=== PATIENT | female | born 1950 | race Caucasian/White ===

== ENCOUNTER 2017-04-09 16:01 | Emergency (ER) | payer OTHER, MEDICARE ==
[2017-04-09 19:28] VITALS: BP 138/76
== END 2017-04-09 17:15 | disposition home or self-care (01) ==
LOC: FSED 16:01
DX: S52.614A Nondisplaced fracture of right ulna styloid process, initial encounter for closed fracture (principal); S52.501A Unspecified fracture of the lower end of right radius, initial encounter for closed fracture; W01.0XXA Fall on same level from slipping, tripping and stumbling without subsequent striking against object, initial encounter; Y92.019 Unspecified place in single-family (private) house as the place of occurrence of the external cause
CPT/HCPCS: 99284

== ENCOUNTER → 2018-08-29 | Day surgery (SDC) | payer MEDICARE ==
[2018-08-27 12:35] LABS: BASOPHILS # (AUTO) 0.1 (0.0-0.1); BASOPHILS % 0.8 % (0.0-1.0); EOSINOPHILS # (AUTO) 0.2 (0.0-0.4); EOSINOPHILS % 2.6 % (0.0-6.0); HEMATOCRIT 36.3 % (34.2-44.1); HEMOGLOBIN 11.4 g/dL (12.0-16.0); LYMPHOCYTES # (AUTO) 1.3 (1.0-3.2); LYMPHOCYTES % 19.7 % (18.0-39.1); MEAN CORPUSCULAR HEMOGLOBIN 26.8 pg (28-32); MEAN CORPUSCULAR HGB CONC 31.4 g/dL (31-35); MEAN CORPUSCULAR VOLUME 85.4 fL (81-99); MONOCYTES # (AUTO) 0.6 (0.2-0.8); MONOCYTES % 9.3 % (4.4-11.3); NEUTROPHILS # (AUTO) 4.3 (2.1-6.9); NEUTROPHILS % 67.3 % (38.7-80.0); PLATELET COUNT 306 x10e3/uL (140-360); RED BLOOD COUNT 4.25 x10e6/uL (3.6-5.1); RED CELL DISTRIBUTION WIDTH 15.8 % (11.7-14.4)
[~2018-08-29] MED LIST: ATORVASTATIN CA20 MG PO; CALCIUM PO; DEXTROSE 5% 250ML 250 ML IV ONE; FENTANYL CITRATE/PF 100MCG/2 ML INJ ONE; GABAPENTIN400 MG PO; GLIMEPIRIDE2 MG PO; GLUCOSAMINE H1500 MG PO; JANUVIA100 MG PO; LOSARTAN POTAS100 MG PO; MELATONIN3 M1 PO; METFORMIN HCL500 MG PO; MIDAZOLAM HCL 2 MG/2 ML VIAL ONE; OXYBUTYNIN CHLOR5 MG PO; PROPOFOL IV EMULSION 10 MG/ML 50 ML VIAL ONE; SPIRONOLACTONE25 MG PO; VIT B12 PO
--- OUTSIDE RECORDS SUMMARY | 2018-08-29 05:51 | XMS REPORT | Summary of Care ---
Author Jhoan Rodriguez [facility] Unknown Address Unknown Phone Unavailable Care Team Providers Care Operator Helper Name Role Phone IAN Fox, ANDREAS Unavailable Unavailable KAZ Fox, WALLY Unavailable Unavailable KAZ VIVAR VA, WALLY BAKER Unavailable Unavailable Unavailable Unavailable Functional Status Name Dates Details Functional status health issues are not documented Status: Name Dates Details Cognitive status health issues are not documented Status: Problems Name Dates Details Fatigue (780.79, R53.83) Status: Active Esophageal reflux (530.81, K21.9) Status: Active Stasis edema of both lower extremities (459.30, I87.303) Status: Active Depression, controlled (311, F32.9) Status: Active Iron deficiency anemia (280.9, D50.9) Status: Active Sinusitis (473.9, J32.9) Status: Active Advanced care planning/counseling discussion (V65.49, Z71.89) Status: Active Chronic pain (338.29, G89.29) Status: Active Alopecia (704.00, L65.9) Status: Active Vitamin B12 deficiency (266.2, E53.8) Status: Active Primary localized osteoarthritis of right knee (715.16, M17.11) Status: Active Status post gastric bypass for obesity (V45.86, Z98.84) Status: Active Pain in right hip (719.45, M25.551) Status: Active Need for vaccination with 13-polyvalent pneumococcal conjugate vaccine (V03.82, Z23) Status: Active PPD screening test (V74.1, Z11.1) Status: Active PPD screening test (V74.1, Z11.1) Status: Active Post-menopausal (V49.81, Z78.0) Status: Active Screening for osteoporosis (V82.81, Z13.820) Status: Active Acquired hammer toes of both feet (735.4, M20.41) Status: Active Callus of foot (700, L84) Status: Active Shingles (herpes zoster) polyneuropathy (053.13, B02.23) Status: Active Finger pain (729.5, M79.646) Status: Active Well woman exam with routine gynecological exam (V72.31, Z01.419) Status: Active Encounter for gynecological examination with Papanicolaou smear of cervix (V72.31, Z01.419) Status: Active Breast cancer screening (V76.10, Z12.31) Status: Active Cervical cancer screening (V76.2, Z12.4) Status: Active Need for hepatitis C screening test (V73.89, Z11.59) Status: Active Colon cancer screening (V76.51, Z12.11) Status: Active Diabetic neuropathy (250.60, E11.40) Status: Active Closed fracture of finger of right hand (816.00, S62.609A) Status: Active 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, 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) Status: Active Sensory urge incontinence (788.31, N39.41) Status: Active Screening for hypothyroidism (V77.0, Z13.29) Status: Active Need for 23-polyvalent pneumococcal polysaccharide vaccine (V03.82, Z23) Status: Active Morbid obesity with BMI of 40.0-44.9, adult (278.01, E66.01) Status: Active Essential hypertension (401.9, I10) Status: Active 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, 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) Status: Active Bilateral knee pain (719.46, M25.561) Status: Active DJD (degenerative joint disease) of knee (715.36, M17.10) Status: Active 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, M47.816) Status: Active Acute upper respiratory infection (465.9, J06.9) Status: Active Reactive airway disease (493.90, J45.909) Status: Active Allergic rhinitis (477.9, J30.9) Status: Active Diabetes type 2, uncontrolled (250.02, E11.65) Status: Active Essential (primary) hypertension (401.9, I10) Status: Active Morbid obesity with BMI of 40.0-44.9, adult (278.01, E66.01) Status: Active Need for influenza vaccination (V04.81, Z23) Status: Active Other depression (311, F32.89) Status: Active Recurrent major depressive disorder, in remission (296.35, F33.40) Status: Active Viral respiratory illness (079.99, J98.8) Status: Active Cough in adult (786.2, R05) Status: Active Type 2 diabetes mellitus with diabetic neuropathy, without long-term current use of insulin (250.60, E11.40) Status: Active Closed Mosquera's fracture of right radius, initial encounter (813.42, S52.561A) Status: Active Encounter for diabetic foot exam (250.00, E11.9) Status: Active Diabetes type 2, controlled (250.00, E11.9) Status: Active Hypertension, uncontrolled (401.9, I10) Status: Active On statin therapy (V58.69, Z79.899) Status: Active Other hyperlipidemia (272.4, E78.4) Status: Active Depression screening (V79.0, Z13.89) Status: Active At risk for falls (V15.88, Z91.81) Status: Active Encounter for mini-mental status examination Status: Active Medications Name Dates Details Gabapentin 100 MG Oral Capsule TAKE 2-3 CAPSULES THREE TIMES DAILY Quantity: 270 WALLY MCCURDY M.D. * Start : 02-Jan-2013 Active Spironolactone 50 MG Oral Tablet TAKE 1 TABLET BY MOUTH EVERY DAY * Quantity: 90 Refills: 2 WALLY MCCURDY M.D. * Start : 03-Apr-2016 Active Glimepiride 1 MG Oral Tablet TAKE 1 TABLET DAILY WITH BREAKFAST AND 1.5 TABLETS WITH EVENING MEAL * Quantity: 235 Refills: 2 WALLY MCCURDY M.D. Active Atorvastatin Calcium 20 MG Oral Tablet TAKE 1 TABLET BY MOUTH DAILY * Quantity: 90 Refills: 2 WALLY MCCURDY M.D. * Start : 28-Nov-2012 Active Calcium TABS TAKE 2 TABLET DAILY * Refills: 0 R.N. Active Vitamin D3 1000 UNIT Oral Tablet Chewable TAKE 2 TABLET DAILY * Refills: 0 R.N. Active Vitamin B12 TABS TAKE 1 TABLET DAILY DIRECTED. * Refills: 0 R.N. Active Albuterol Sulfate NEBU USE 1 UNIT DOSE IN NEBULIZER EVERY 4 TO 6 HOURS NEEDED. * Refills: 0 R.N. Active Glucosamine CAPS TAKE 1 CAPSULE IN AM AND 2 CAPSULES AT NIGHT (1500 mg CAPSULES) * Refills: 0 R.N. Active MetFORMIN HCl ER 500 MG Oral Tablet Extended Release 24 Hour TAKE 2 TABLETS BY MOUTH TWICE DAILY * Quantity: 360 Refills: 2 WALLY MCCURDY M.D. * Start : 25-Jul-2013 Active Melatonin 5 MG Oral Tablet TAKE 1 TABLET BEDTIME * Refills: 0 R.N. Active One Touch Ultra Test Strips test once daily for Diabetes Mellitus * Quantity: 100 Refills: 3 WALLY MCCURDY M.D. * Start : 20-Oct-2015 Active OneTouch UltraSoft Lancets USE AND DISCARD 1 LANCET DAILY TO MONITOR BLOOD SUGAR * Quantity: 100 Refills: 3 WALLY MCCURDY M.D. * Start : 20-Oct-2015 Active ProAir HFA 108 (90 Base) MCG/ACT Inhalation Aerosol Solution INHALE 1 TO 2 PUFFS EVERY 4 TO 6 HOURS NEEDED. * Quantity: 1 Refills: 6 WALLY MCCURDY M.D. * Start : 24-May-2016 Active 8.5 GM Inhaler Losartan Potassium 50 MG Oral Tablet TAKE 1 TABLET DAILY. * Quantity: 90 Refills: 1 WALLY MCCURDY M.D. * Start : 14-Aug-2016 Active Januvia 100 MG Oral Tablet TAKE 1 TABLET BY MOUTH ONCE DAILY * Quantity: 90 Refills: 1 WALLY MCCURDY M.D. * Start : 28-Nov-2016 Active PARoxetine HCl - 10 MG Oral Tablet TAKE ONE TABLET BY MOUTH DAILY * Quantity: 30 Refills: 0 WALLY MCCURDY M.D. * Start : 24-May-2017 Active Azelastine HCl - 0.1 % Nasal Solution PRN * Refills: 0 R.N. Active 30 ML Bottle Aspirin 81 MG TABS TAKE 1 TABLET DAILY. * Refills: 0 R.N. Active Vitamin D (Ergocalciferol) 74456 UNIT Oral Capsule TAKE 1 CAPSULE WEEKLY. * Quantity: 15 Refills: 0 ANDREAS SOSA M.D. * Start : 12-Apr-2017 Active Oxybutynin Chloride 5 MG Oral Tablet TAKE ONE-HALF (1/2) TABLET TWICE A DAY * Quantity: 90 Refills: 1 KAZ Fox WALLY * Start : 11-Jun-2017 Active Allergies and Adverse Reactions Name Dates Details Erythromycin TABS (Allergy) Status: Active Past Medical History Name Dates Details History of Cancer (199.1, C80.1) Status: Resolved History of Encounter for diabetic foot exam (250.00, E11.9) Status: Resolved History of obesity (V12.29, Z86.39) Status: Resolved History of Whooping Cough Status: Resolved Personal history of asthma (V12.69, Z87.09) Status: Resolved Procedures Procedure Dates Details History of Gastric Surgery For Morbid Obesity Gastric Bypass Completed History of Biopsy Breast Open Completed Immunization Name Dates Details Td on: 28-Oct-2010 Zoster (Zostavax) on: 21-Jun-2012 Influenza on: 17-Dec-2013 Prevnar 13 Intramuscular Suspension Lot #: [id number] on: 17-Aug-2015 PPD Lot #: [id number] on: 17-Aug-2015 Fluzone Quadrivalent 0.5 ML Intramuscular Suspension Lot #: [id number] on: 16-Nov-2015 Pneumococcal polysaccharide vaccine, 23 valent Lot #: [id number] on: 14-Aug-2016 Fluzone High-Dose 0.5 ML Intramuscular Suspension Prefilled Syringe Lot #: [id number] on: 28-Nov-2016 Family History Name Dates Details Family history of Rheumatoid Arthritis Status: Active Family history of Diabetes Mellitus (V18.0) Status: Active Family history of osteoporosis (V17.81, Z82.62) Status: Active Name Dates Details Family history of Hypertension (V17.49) Status: Active Family history of Coronary Artery Disease (V17.49) Status: Active Family history of Cancer Status: Active Family history of Diabetes Mellitus (V18.0) Status: Active Name Dates Details Family history of Diabetes Mellitus (V18.0) Status: Active Social History Name Dates Details - Status: Name Dates Details Never smoker Vital Signs Date Test Result Details [id number] BP Systolic 142 mm[Hg] Status: Comments: Location: LUE; Position: Sitting BP Diastolic 88 mm[Hg] Status: Comments: Location: LUE; Position: Sitting [id number] BP Systolic 140 mm[Hg] Status: Comments: Location: RUE; Position: Sitting BP Diastolic 88 mm[Hg] Status: Comments: Location: RUE; Position: Sitting :39 BP Systolic 150 mm[Hg] Status: Comments: Location: LUE; Position: Sitting BP Diastolic 90 mm[Hg] Status: Comments: Location: LUE; Position: Sitting :57 Physical Findings 0 Status: Comments: PHQ-2 Adult Depression Screening Physical Findings 3 Status: Comments: PHQ-9 Adult Depression Screening :46 BP Systolic 115 mm[Hg] Status: Comments: Location: LUE; Position: Sitting BP Diastolic 71 mm[Hg] Status: Comments: Location: LUE; Position: Sitting Height 67 in Status: Weight 295.2 lb Status: Body Mass Index Calculated 46.24 kg/m2 Status: Body Surface Area Calculated 2.39 m2 Status: Temperature 96.3 f Status: Comments: Method: Temporal Heart Rate 56 /min Status: Comments: Location: L Radial; Respiration Rate 16 /min Status: Comments: Quality: Normal Results Date Description Value Details :26 [QH] LIPID PANEL WITH REFLEX TO DIRECT LDL CHOLESTEROL, TOTAL 175 mg/dl (Normal) Range: <200 HDL CHOLESTEROL 55 mg/dl (Normal) Range: >50 TRIGLYCERIDES 102 mg/dl (Normal) Range: <150 LDL-CHOLESTEROL 100 {MG/DL__CAL} (Above high threshold) Comments: Reference range: <100 Desirable range <100 mg/dL for patients with CHD ordiabetes and <70 mg/dL for diabetic patients withknown heart disease. LDL-C is now calculated using the Yony calculation, which is a validated novel method providing better accuracy than the Friedewald equation in the estimation of LDL- C. Priyank CHENG et al. ANGEL. 2013;310(19): 7944-0708 (http://education.[employer].com.[employer]/faq/TIL006) CHOL/HDLC RATIO 3.2 {CALC} (Normal) Range: <5.0 NON HDL CHOLESTEROL 120 {MG/DL__CAL} (Normal) Range: <130 Comments: For patients with diabetes plus 1 major ASCVD risk factor, treating to a non-HDL-C goal of <100 mg/dL (LDL-C of <70 mg/dL) is considered a therapeutic option. :26 [QLH] BASIC METABOLIC PANEL W/EGFR GLUCOSE 108 mg/dl (Above high threshold) Range: 65-99 Comments: Fasting reference interval For someone without known diabetes, a glucose valuebetween 100 and 125 mg/dL is consistent withprediabetes and should be confirmed with afollow-up test. UREA NITROGEN (BUN) 14 mg/dl (Normal) Range: 7-25 CREATININE 0.85 mg/dl (Normal) Range: 0.50-0.99 Comments: For patients >49 years of age, the reference limitfor Creatinine is approximately 13% higher for peopleidentified as -[place]. eGFR NON- 71 {ML/MIN/1.7} (Normal) Range: > OR=60 eGFR 82 {ML/MIN/1.7} (Normal) Range: > OR=60 BUN/CREATININE RATIO NOT APPLICABLE {CALC} Range: 6-22 SODIUM 142 mmol/L (Normal) Range: 135-146 POTASSIUM 4.6 mmol/L (Normal) Range: 3.5-5.3 CHLORIDE 107 mmol/L (Normal) Range: 98-110 CARBON DIOXIDE 29 mmol/L (Normal) Range: 20-31 CALCIUM 9.5 mg/dl (Normal) Range: 8.6-10.4 :26 [[facility]] HEPATIC FUNCTION PANEL PROTEIN, TOTAL 6.4 g/dl (Normal) Range: 6.1-8.1 ALBUMIN 3.8 g/dl (Normal) Range: 3.6-5.1 GLOBULIN 2.6 {G/DL__CALC} (Normal) Range: 1.9-3.7 ALBUMIN/GLOBULIN RATIO 1.5 {CALC} (Normal) Range: 1.0-2.5 BILIRUBIN, TOTAL 0.5 mg/dl (Normal) Range: 0.2-1.2 BILIRUBIN, DIRECT 0.1 mg/dl (Normal) Range: < OR=0.2 BILIRUBIN, INDIRECT 0.4 {MG/DL__CAL} (Normal) Range: 0.2-1.2 ALKALINE PHSPHATASE 91 u/l (Normal) Range: 33-130 AST 15 u/l (Normal) Range: 10-35 ALT 11 u/l (Normal) Range: 6-29 [id number] [[facility]] HEMOGLOBIN A1c HEMOGLOBIN A1c 6.6 {%_of_total} (Above high threshold) Range: <5.7 Comments: For someone without known diabetes, a hemoglobin [id number] of 6.5% or greater indicates that they may have diabetes and this should be confirmed with a follow-up test. For someone with known diabetes, a value <7% indicates that their diabetes is well controlled and a value greater than or equal to 7% indicates suboptimal control. A1c targets should be individualized based on duration of diabetes, age, comorbid conditions, and other considerations. Currently, no consensus exists regarding use ofhemoglobin A1c for diagnosis of diabetes for children. Plan of Care Name Dates Details Planned Observations Planned Goals not documented Planned Encounters Appointment; WALLY MCCURDY M.D. On: 03-Jul-2017 15:45 Appointment; ANDREAS SOSA M.D. On: 10-Jul-2017 15:15 Instructions Name Dates Details Instructions not documented Encounters Appointment; WALLY MCCURDY M.D. Encounter Diagnosis: Problem not documented On: 06-Jul-2015 15:30 Appointment; WALLY MCCURDY M.D. Encounter Diagnosis: Problem not documented On: 17-Aug-2015 10:00 Appointment; WALLY MCCURDY M.D. Encounter Diagnosis: Problem not documented On: 31-Aug-2015 8:30 Appointment; WALLY MCCURDY M.D. Encounter Diagnosis: Problem not documented On: 16-Nov-2015 15:30 Appointment; ALLA STORM NP Encounter Diagnosis: Problem not documented On: 04-Dec-2015 9:45 Appointment; WALLY MCCURDY M.D. Encounter Diagnosis: Problem not documented On: 03-Apr-2016 10:45 Appointment; ANDREAS SOSA M.D. Encounter Diagnosis: Problem not documented On: 11-Apr-2016 13:30 Appointment; WALLY MCCURDY M.D. Encounter Diagnosis: Problem not documented On: 09-May-2016 10:00 Appointment; YOLIS QUIROGA M.D. Encounter Diagnosis: Problem not documented On: 24-May-2016 9:30 Appointment; EMMY VELA M.D. Encounter Diagnosis: Problem not documented On: 07-Jun-2016 14:30 Appointment; WALLY MCCURDY M.D. Encounter Diagnosis: Problem not documented On: 14-Aug-2016 9:00 Appointment; LESVIA PRASAD M.D. Encounter Diagnosis: Problem not documented On: 02-Sep-2016 9:30 Appointment; ALEXANDER ADDISON M.D. Encounter Diagnosis: Problem not documented On: 12-Oct-2016 8:45 Appointment; WALLY MCCURDY M.D. Encounter Diagnosis: Problem not documented On: 28-Nov-2016 15:45 Appointment; WALLY MCCURDY M.D. Encounter Diagnosis: Problem not documented On: 29-Jan-2017 9:00 Appointment; ANDREAS SOSA M.D. Encounter Diagnosis: Problem not documented On: 12-Apr-2017 9:45 Appointment; ANDREAS SOSA M.D. Encounter Diagnosis: Problem not documented On: 08-May-2017 10:15 Appointment; WALLY MCCURDY M.D. Encounter Diagnosis: Problem not documented On: 31-May-2017 15:45
[2018-08-29 09:35] VITALS: BP 135/71
--- NOTE | 2018-08-29 10:25 | Operative Report ---
DATE OF PROCEDURE: 08/29/2018 SURGEON: Bob Guan MD PROCEDURE PERFORMED: Colonoscopy. PREOPERATIVE DIAGNOSIS: History of colon polyps. POSTOPERATIVE DIAGNOSIS: History of colon polyps. PREOPERATIVE MEDICATIONS: Consisted of MAC anesthesia. PROCEDURE IN DETAIL: Using an Olympus video JOHNNA colonoscope, it was inserted in the patient's rectum and advanced up into the sigmoid colon. There was excessive amount of stool present, which precluded examination of the lining. So at this point, we decided to end the procedure and repeat it at a later date. In conclusion, we have an incomplete colonoscopy that will be repeated at a later date. Bob Guan MD SAF/MODL /[id number]
== END | disposition home or self-care (01) ==
LOC: OR 05:48
PROVIDERS: ATTEND Internal Medicine Gastroenterology
DX: Z09 Encounter for follow-up examination after completed treatment for conditions other than malignant neoplasm (principal); K59.00 Constipation, unspecified; E11.9 Type 2 diabetes mellitus without complications; I10 Essential (primary) hypertension; J45.909 Unspecified asthma, uncomplicated; R00.1 Bradycardia, unspecified; I44.0 Atrioventricular block, first degree; Z01.810 Encounter for preprocedural cardiovascular examination; Z01.812 Encounter for preprocedural laboratory examination; Z79.82 Long term (current) use of aspirin; Z79.84 Long term (current) use of oral hypoglycemic drugs; Z68.42 Body mass index [BMI] 45.0-49.9, adult
CPT/HCPCS: 36415 ×2; 45378; 82948; 85025; 93005; J2250; J2704; J7070

== ENCOUNTER → 2018-12-05 | Day surgery (SDC) | payer MEDICARE ==
[2018-12-04 09:51] LABS: BASOPHILS # (AUTO) 0.1 (0.0-0.1); BASOPHILS % 0.7 % (0.0-1.0); EOSINOPHILS # (AUTO) 0.2 (0.0-0.4); EOSINOPHILS % 2.2 % (0.0-6.0); HEMATOCRIT 37.7 % (34.2-44.1); HEMOGLOBIN 12.1 g/dL (12.0-16.0); LYMPHOCYTES # (AUTO) 1.5 (1.0-3.2); MEAN CORPUSCULAR HEMOGLOBIN 28.2 pg (28-32); MEAN CORPUSCULAR HGB CONC 32.1 g/dL (31-35); MEAN CORPUSCULAR VOLUME 87.9 fL (81-99); MONOCYTES # (AUTO) 0.7 (0.2-0.8); MONOCYTES % 9.8 % (4.4-11.3); NEUTROPHILS # (AUTO) 4.8 (2.1-6.9); PLATELET COUNT 280 x10e3/uL (140-360); RED BLOOD COUNT 4.29 x10e6/uL (3.6-5.1); RED CELL DISTRIBUTION WIDTH 16.2 % (11.7-14.4)
[~2018-12-05] MED LIST changes: +ASPIR 8181 MG PO; -DEXTROSE 5% 250ML 250 ML IV ONE; +LIDOCAINE HCL 2% LOCAL INJ 5 ML SDV VIAL INJ ONE; +MELATONIN PO; +PAROXETINE HCL10 MG PO
[2018-12-05 14:50] VITALS: BP 139/68
--- NOTE | 2018-12-05 20:32 | Operative Report ---
DATE OF PROCEDURE: 12/05/2018 SURGEON: Bob Guan MD PROCEDURE PERFORMED: Colonoscopy. PREOPERATIVE DIAGNOSIS: History of colon polyps. POSTOPERATIVE DIAGNOSIS: History of colon polyps, none found. PREOPERATIVE MEDICATIONS: Consisted of MAC anesthesia. DESCRIPTION OF THE PROCEDURE: Using an Olympus [employer] video colonoscope, it was inserted into the patient's rectum and advanced without difficulty to the level of the cecum. The colon was studied from that level back down to the rectum. No polypoid lesions, tumors, masses, or inflammatory changes were encountered. The colonoscope was withdrawn from the patient's rectum and the procedure was ended. In conclusion, we have findings of no new colon polyps at this time. Bob Guan MD SAF/MODL /[id number]
== END | disposition home or self-care (01) ==
LOC: OR 11:16
PROVIDERS: ATTEND Internal Medicine Gastroenterology
DX: Z09 Encounter for follow-up examination after completed treatment for conditions other than malignant neoplasm (principal); Z86.010 Personal history of colon polyps; J45.909 Unspecified asthma, uncomplicated; Z88.1 Allergy status to other antibiotic agents; Z01.810 Encounter for preprocedural cardiovascular examination; Z01.812 Encounter for preprocedural laboratory examination; Z79.84 Long term (current) use of oral hypoglycemic drugs; Z79.82 Long term (current) use of aspirin; Z68.41 Body mass index [BMI] 40.0-44.9, adult
CPT/HCPCS: 36415 ×2; 45378; 82948; 85025; 93005; J2001; J2250; J2704; J3010

== ENCOUNTER 2024-10-30 15:41 | Inpatient (IN) | payer MEDICARE ==
[~2024-10-30] VITALS: Ht 170.2 cm; Wt 118.8 kg
[~2024-10-30 15:41] MED LIST changes: -FENTANYL CITRATE/PF 100MCG/2 ML INJ ONE; -LIDOCAINE HCL 2% LOCAL INJ 5 ML SDV VIAL INJ ONE; -MIDAZOLAM HCL 2 MG/2 ML VIAL ONE; -PROPOFOL IV EMULSION 10 MG/ML 50 ML VIAL ONE; -VIT B12 PO; +VIT B12 SL
[2024-10-30 16:00] VITALS: TEMP 98
[2024-10-30] MEDS ORDERED: Morphine 4mg INJECTION 4 MG/ML INJ IV PRN (16:15)
[2024-10-30] MEDS ORDERED: ONDANSETRON HCL INJ 2MG/ML 2ML 2 MG/ML VIAL IV PRN (16:15)
[2024-10-30 16:17] VITALS: PULSE 69; RESP 18; O2SAT 97
[2024-10-30 16:19] LABS: BASOPHILS % 0.7 % (0.0-1.0); EOSINOPHILS % 2.1 % (0.0-6.0); LYMPHOCYTES % 21.6 % (18.0-39.1); MONOCYTES % 6.8 % (4.4-11.3); NEUTROPHILS % 68.5 % (38.7-80.0); RED CELL DISTRIBUTION WIDTH 12.5 % (11.7-14.4)
[2024-10-30 16:44] LABS: EST GLOMERULAR FILTRATION RATE 69.0 ML/MIN (>=60)
[2024-10-30] MEDS: SODIUM CHLORIDE 0.9% 1000ML 1,000 ML IV SCH (17:16)
[2024-10-30 17:30] VITALS: PULSE 59; RESP 16
[2024-10-30 18:35] VITALS: BP 135/75; PULSE 71; RESP 18; TEMP 97.9; O2SAT 98
[2024-10-30] MEDS ORDERED: MELATONIN 5 MG TABLET PO PRN (18:45)
[2024-10-30] MEDS ORDERED: DEXTROSE 50% SYRINGE 50 ML IV PRN (18:45)
[2024-10-30 20:00] VITALS: BP 150/60; PULSE 85; RESP 17; TEMP 97.4; O2SAT 100
[2024-10-30] MEDS: ATORVASTATIN 20 MG TAB PO SCH (21:00)
[2024-10-30] MEDS: INSULIN REGULAR, HUMAN 100 UNIT/1 ML SQ SCH (21:39)
[2024-10-30] MEDS ORDERED: GABAPENTIN100 MG PO (21:45)
[2024-10-30] MEDS ORDERED: LOSARTAN POTASS25 MG PO (21:48)
[2024-10-30] MEDS ORDERED: OZEMPIC2 MG/0.75 (21:52)
[2024-10-30] MEDS ORDERED: PRAMIPEXOLE D0.25 MG PO (21:54)
[2024-10-30] MEDS ORDERED: FEROSUL325 MG PO (21:59)
[2024-10-30] MEDS ORDERED: MULTI-VITAMIN1 EACH PO (22:00)
[2024-10-30] MEDS: GLIMEPIRIDE 2 MG TAB PO SCH (22:12)
[2024-10-30] MEDS: ASPIRIN 81 MG CHEW TAB PO SCH (22:13)
[2024-10-30] MEDS: SPIRONOLACTONE 25 MG TAB PO SCH (22:13)
[2024-10-30] MEDS: LOSARTAN POTASSIUM 25 MG TAB PO SCH (22:13)
[2024-10-30] MEDS: SITAGLIPTIN 100 MG TAB PO SCH (22:13)
[2024-10-30] MEDS ORDERED: PRAMIPEXOLE DIHYDROCHLORIDE 0.25 MG TAB PO SCH (22:30)
[2024-10-30] MEDS: PRAMIPEXOLE DIHYDROCHLORIDE 0.25 MG TAB PO SCH (23:14)
[2024-10-30 23:47] VITALS: BP 152/83; PULSE 72; RESP 17; TEMP 98.7; O2SAT 98
[2024-10-31] VITALS (23 sets, daily range): BP systolic 113–144; BP diastolic 53–97; PULSE 56–69; RESP 14–26; TEMP 97–97.9; O2SAT 96–100
[2024-10-31] MEDS ORDERED: DEXTROSE 50% SYRINGE 50 ML IV PRN (00:30)
[2024-10-31] MEDS ORDERED: ALBUTEROL/IPRATROPIUM 3 ML NEB NEB PRN (00:30)
[2024-10-31] MEDS ORDERED: BENZONATATE 100 MG CAP PO PRN (00:30)
[2024-10-31] MEDS ORDERED: HYDRALAZINE HCL 20 MG/ML VIAL IV PRN (00:30)
[2024-10-31] MEDS ORDERED: ACETAMINOPHEN 325 MG TAB PO PRN (00:30)
[2024-10-31] MEDS ORDERED: SIMETHICONE 80 MG CHEW PO PRN (00:30)
[2024-10-31] MEDS ORDERED: POTASSIUM CHLORIDE 20 MEQ TAB CR PO PRN (00:30)
[2024-10-31] MEDS ORDERED: DIPHENHYDRAMINE HCL 25 MG CAP PO PRN (00:30)
[2024-10-31] MEDS ORDERED: DOCUSATE SODIUM 100 MG CAP PO PRN (00:30)
[2024-10-31 06:09] LABS: BASOPHILS % 0.7 % (0.0-1.0); EOSINOPHILS % 3.6 % (0.0-6.0); LYMPHOCYTES % 32.0 % (18.0-39.1); MONOCYTES % 9.3 % (4.4-11.3); NEUTROPHILS % 54.1 % (38.7-80.0); RED CELL DISTRIBUTION WIDTH 12.6 % (11.7-14.4)
[2024-10-31 06:27] LABS: EST GLOMERULAR FILTRATION RATE 73.0 ML/MIN (>=60)
[2024-10-31 06:45] LABS: CHOL/HDL RATIO 2.5 (3.0-3.6); LDL CHOLESTEROL 64.0 MG/DL (60-130)
[2024-10-31] MEDS ORDERED: OXYBUTYNIN CHLORIDE 5 MG TAB PO SCH (09:00)
[2024-10-31] MEDS ORDERED: REGADENOSON 0.4 MG/5 ML SYR IV ONE (10:49)
[2024-10-31] MEDS: METFORMIN HCL 500 MG TAB PO SCH (12:49)
[2024-10-31] MEDS: CYANOCOBALAMIN 1,000 MCG TAB PO SCH (12:51)
[2024-10-31] MEDS: PAROXETINE HCL 20 MG TAB PO SCH (12:53)
[2024-10-31] MEDS: GABAPENTIN 100 MG CAP PO SCH (12:54)
[2024-10-31] MEDS: PANTOPRAZOLE SOD 40 MG TABEC PO SCH (12:54)
[2024-10-31] MEDS: CALCIUM CARBONATE 500 MG CHEWABLE TABS PO SCH (12:57)
[2024-10-31] MEDS: KETOROLAC TROMETHAMINE 30 MG/ML VIAL IV SCH (16:00)
[2024-10-31] MEDS: ENOXAPARIN SOD INJ 40 MG/0.4 ML SYR SC SCH (16:59)
[2024-10-31] MEDS: HEPARIN SOD/SOD CHLORIDE 2,000 ML ONE (17:55)
[2024-10-31] MEDS: HEPARIN SOD (PORCINE) 1000 UNIT/ML 30ML ONE (17:55)
[2024-10-31] MEDS: VERAPAMIL HCL 2.5 MG/ML 2 ML VIAL ONE (17:56)
[2024-10-31] MEDS: SODIUM CHLORIDE 0.9% 1000ML 1,000 ML ONE (17:56)
[2024-10-31] MEDS: NITROGLYCERIN/D5W 200 MCG/ML 250 ML ONE (17:56)
[2024-10-31] MEDS: LIDOCAINE HCL 2% LOCAL 20 ML VIAL ONE (17:56)
[2024-10-31] MEDS: MIDAZOLAM HCL 2 MG/2 ML VIAL ONE (17:57)
[2024-10-31] MEDS: FENTANYL CITRATE/PF 100MCG/2 ML INJ ONE (17:57)
[2024-10-31] MEDS: IOPAMIDOL 370 MG/ML 100 ML INFUS..BTL INJ ONE (17:57)
[2024-11-01] VITALS: BP 114/57; PULSE 55; RESP 18; TEMP 98.8; O2SAT 99
[2024-11-01 04:00] VITALS: BP 133/54; PULSE 69; RESP 18; TEMP 97.9; O2SAT 95
[2024-11-01 06:31] VITALS: PULSE 74; RESP 20; O2SAT 96
[2024-11-01 07:00] VITALS: BP 110/58; PULSE 63; RESP 18; TEMP 98.3; O2SAT 98
[2024-11-01 08:26] LABS: BASOPHILS % 0.9 % (0.0-1.0); EOSINOPHILS % 2.9 % (0.0-6.0); LYMPHOCYTES % 18.4 % (18.0-39.1); MONOCYTES % 9.6 % (4.4-11.3); NEUTROPHILS % 68.0 % (38.7-80.0); RED CELL DISTRIBUTION WIDTH 12.7 % (11.7-14.4)
[2024-11-01 08:42] LABS: EST GLOMERULAR FILTRATION RATE 58.0 ML/MIN (>=60)
[2024-11-01 11:24] VITALS: BP 101/60; PULSE 61; RESP 18; TEMP 98; O2SAT 98
[2024-11-01 15:20] VITALS: BP 107/73; PULSE 61; RESP 18; TEMP 97.4; O2SAT 98
== END 2024-11-01 16:20 | disposition home or self-care (01) | DRG 287 ==
LOC: ER 15:54 → ERHOLD 16:33 → MED/SURG2 18:17 → OBSVTOIN 11-01 15:25
PROVIDERS: ADMIT Internal Medicine; ATTEND Internal Medicine
PROC: 4A023N7 Measurement of Cardiac Sampling and Pressure, Left Heart, Percutaneous Approach (ICD-10-PCS; principal; 2024-10-31)
PROC: B2111ZZ Fluoroscopy of Multiple Coronary Arteries using Low Osmolar Contrast (ICD-10-PCS; 2024-10-31)
PROC: B2151ZZ Fluoroscopy of Left Heart using Low Osmolar Contrast (ICD-10-PCS; 2024-10-31)
DX: I25.10 Atherosclerotic heart disease of native coronary artery without angina pectoris (principal); S32.019A Unspecified fracture of first lumbar vertebra, initial encounter for closed fracture; Z68.41 Body mass index [BMI] 40.0-44.9, adult; I10 Essential (primary) hypertension; E78.00 Pure hypercholesterolemia, unspecified; I44.0 Atrioventricular block, first degree; R94.39 Abnormal result of other cardiovascular function study; E11.9 Type 2 diabetes mellitus without complications; Z79.84 Long term (current) use of oral hypoglycemic drugs; M46.1 Sacroiliitis, not elsewhere classified; X58.XXXA Exposure to other specified factors, initial encounter; M17.0 Bilateral primary osteoarthritis of knee; M16.11 Unilateral primary osteoarthritis, right hip; M47.816 Spondylosis without myelopathy or radiculopathy, lumbar region; E66.01 Morbid (severe) obesity due to excess calories; Z98.84 Bariatric surgery status; Z79.899 Other long term (current) drug therapy
CPT/HCPCS: 36415; 71045; 72070; 72100; 72220; 76937; 78452; 80048; 80053; 80061; 82550; 82948; 83036; 83690; 83880; 84443; 84484; 85025; 93005; 93017; 93306; 93454; 94799; 99152; 99153; 99284; A9502; C1769; C1887; G0378; J1644; J1885; J2003; J2250; J2470; J7030; Q9967